=== PATIENT | female | born 1975 | race Caucasian/White ===

== ENCOUNTER 2020-12-17 15:30 | Inpatient (IN) | payer OTHER ==
[2020-12-17 19:59] VITALS: BMI 31.6
[2020-12-18] MEDS ORDERED: diazePAM 5 MG TABLET PO PRN (00:18)
[2020-12-18] MEDS ORDERED: NICOTINE POLACRILEX 2 MG GUM BUC PRN (00:18)
[2020-12-18] MEDS ORDERED: MAG HYDROX/AL HYDROX/SIMETH 30 ML UNIT-DOSE CUP PO PRN (00:18)
[2020-12-18] MEDS ORDERED: MENTHOL/PHENOL 1 EACH UD MM PRN (00:18)
[2020-12-18] MEDS ORDERED: MAGNESIUM HYDROX 2400MG/30ML ORAL SUSPENSION 30 ML CUP PO PRN (00:18)
[2020-12-18] MEDS ORDERED: ACETAMINOPHEN 325 MG TABLET (FP) PO PRN ×2 (00:18)
[2020-12-18] MEDS ORDERED: ONDANSETRON *ODT* 4 MG TABLET SL PRN (00:18)
[2020-12-18] MEDS ORDERED: MAGNESIUM CITRATE 300 ML BOTTLE PO PRN (00:18)
[2020-12-18] MEDS ORDERED: BISMUTH SUBSALICYLATE 524 MG/30 ML PO PRN (00:18)
[2020-12-18] MEDS ORDERED: IBUPROFEN 400 MG TABLET (FP) PO PRN (00:18)
[2020-12-18] MEDS ORDERED: diazePAM 5 MG TABLET ONE ×2 (06:06→10:05)
[2020-12-18] MEDS: diazePAM 5 MG TABLET PO SCH ×4 (06:23→22:33)
[2020-12-18] MEDS ORDERED: NICOTINE 14 MG/24 HOURS TOPICAL PATCH TD ONE (10:05)
[2020-12-18] MEDS: NICOTINE 14 MG/24 HOURS TOPICAL PATCH TD SCH (10:17)
[2020-12-18] MEDS: PRENATAL VITAMINS W/ FOLIC ACID TABLET (FP) PO SCH (10:18)
[2020-12-18] MEDS: METHOCARBAMOL 500 MG TABLET PO PRN ×2 (14:33→22:31)
[2020-12-18] MEDS: THIAMINE HCL 100 MG TABLET (FP) PO SCH (22:31)
[2020-12-18] MEDS: MELATONIN 5 MG TABLETS PO SCH (22:32)
[2020-12-19] MEDS: diazePAM 5 MG TABLET PO SCH ×3 (05:56→22:54)
[2020-12-19] MEDS: NICOTINE 14 MG/24 HOURS TOPICAL PATCH TD SCH (10:31)
[2020-12-19] MEDS: PRENATAL VITAMINS W/ FOLIC ACID TABLET (FP) PO SCH (10:31)
[2020-12-19 13:58] LABS: HEMATOCRIT 41.9 % (32.4-45.2); HEMOGLOBIN 13.9 GM/dL (10.7-15.3); MCH 31.5 pg (25.7-33.7); MCHC 33.1 g/dl (32.0-36.0); MEAN CELL VOLUME 95.1 fl (80-96); PLATELET COUNT 206 K/MM3 (134-434); RDW 13.4 % (11.6-15.6); WHITE BLOOD COUNT 8.7 K/mm3 (4.0-10.0)
[2020-12-19 14:36] LABS: ALBUMIN 3.4 g/dl (3.4-5.0); BLOOD UREA NITROGEN 18.8 mg/dL (7-18); CALCIUM 8.7 mg/dL (8.5-10.1)
[2020-12-19 14:39] LABS: CREATININE 0.9 mg/dL (0.55-1.3)
[2020-12-19 14:40] LABS: BILIRUBIN,TOTAL 0.2 mg/dL (0.2-1); TOT PROT 6.2 g/dl (6.4-8.2)
[2020-12-19] MEDS ORDERED: SUVOREXANT 10 MG TABLET PO ONE (22:13)
[2020-12-19] MEDS: THIAMINE HCL 100 MG TABLET (FP) PO SCH (22:54)
[2020-12-19] MEDS: MELATONIN 5 MG TABLETS PO SCH (22:55)
[2020-12-20] MEDS ORDERED: diazePAM 5 MG TABLET PO SCH (06:00)
[2020-12-20] MEDS: PRENATAL VITAMINS W/ FOLIC ACID TABLET (FP) PO SCH (10:11)
[2020-12-20] MEDS: NICOTINE 14 MG/24 HOURS TOPICAL PATCH TD SCH (10:11)
[2020-12-20 14:18] VITALS: BP 144/81; PULSE 71; TEMP 97.3
[2020-12-21] MEDS ORDERED: diazePAM 5 MG TABLET PO ONE (06:00)
== END 2020-12-20 17:00 | disposition home or self-care (01) | DRG 774 ==
LOC: YASAS 15:30 → Y6N 12-18 12:43
PROVIDERS: ADMIT Allergy & Immunology; ATTEND Allergy & Immunology
PROC: HZ2ZZZZ Detoxification Services for Substance Abuse Treatment (ICD-10-PCS; principal; 2020-12-18)
DX: F13.230 Sedative, hypnotic or anxiolytic dependence with withdrawal, uncomplicated (principal); F10.20 Alcohol dependence, uncomplicated; F14.20 Cocaine dependence, uncomplicated; F17.210 Nicotine dependence, cigarettes, uncomplicated; F19.282 Other psychoactive substance dependence with psychoactive substance-induced sleep disorder; F19.24 Other psychoactive substance dependence with psychoactive substance-induced mood disorder; F31.81 Bipolar II disorder; G47.00 Insomnia, unspecified; I10 Essential (primary) hypertension; J45.909 Unspecified asthma, uncomplicated; Z62.810 Personal history of physical and sexual abuse in childhood; Z91.410 Personal history of adult physical and sexual abuse
CPT/HCPCS: 36415; 80053; 81025; 85027; 86780; 93005; 93010; C9803; U0003